=== PATIENT | male | born 1965 | race Caucasian/White ===

== ENCOUNTER 2017-02-21 16:07 | Inpatient (IN) | payer MEDICAID ==
[~2017-02-21] VITALS: Ht 172.7 cm; Wt 83.2 kg
[2017-02-21 21:12] VITALS: BP 115/66; RESP 18
[2017-02-21] MEDS ORDERED: PROCHLORPERAZINE 10 MG INJ IV PRN (22:00)
[2017-02-21] MEDS ORDERED: POLYETHYLENE GLYCOL 17 GM PACKET PO PRN (22:00)
[2017-02-21] MEDS ORDERED: MAGNESIUM HYDROXIDE 30ML CUP PO PRN (22:00)
[2017-02-21] MEDS ORDERED: ACETAMINOPHEN 325 MG TAB PO PRN (22:00)
[2017-02-21] MEDS ORDERED: DIPHENHYDRAMINE 25 MG CAP PO PRN (22:00)
[2017-02-21] MEDS ORDERED: ONDANSETRON 4 MG INJ IV PRN (22:00)
[2017-02-21] MEDS ORDERED: BISACODYL (EC) 5 MG TAB PO PRN (22:00)
[2017-02-21] MEDS ORDERED: ACYCLOVIR 400 MG TAB PO PRN (22:00)
[2017-02-21] MEDS: oxyCODONE 5 MG TAB PO PRN (22:11)
[2017-02-21 22:28] VITALS: Ht 172.7 cm; Wt 83.2 kg
[2017-02-21 23:17] LABS: ADD UMIC NO; URINE BILIRUBIN (Dip) NEGATIVE (NEGATIVE); URINE BLOOD (Dip) NEGATIVE (NEGATIVE); URINE COLOR LT. YELLOW (YELLOW); URINE GLUCOSE (Dip) NEGATIVE (NEGATIVE); URINE KETONES (Dip) NEGATIVE (NEGATIVE); URINE LEUKOCYTE ESTERASE (Dip) NEGATIVE (NEGATIVE); URINE NITRITE (Dip) NEGATIVE (NEGATIVE); URINE TOTAL PROTEIN (Dip) NEGATIVE (NEGATIVE); URINE UROBILINOGEN (Dip) 1.0 E.U./dL (0.1-1.0)
[2017-02-21] MEDS: ERTAPENEM SODIUM 1 GM in SOD CHLORIDE 0.9% 100 ML IVPB SCH (23:47)
[2017-02-22] MEDS: oxyCODONE 5 MG TAB PO PRN ×2 (06:50→20:59)
[2017-02-22 06:58] LABS: ADD SCAN DIFF NO
[2017-02-22 07:04] LABS: BASOPHILS % 0.5 % (0.0-2.0); EOSINOPHILS # 0.2 10^3/ul (0.0-0.5); EOSINOPHILS % 5.3 % (0.0-7.0); HEMATOCRIT 28.2 % (42.0-52.0); HEMOGLOBIN 8.9 g/dl (14.0-18.0); LYMPHOCYTES # 1.2 10^3/ul (0.8-2.9); LYMPHOCYTES % 29.5 % (15.0-51.0); MEAN CORPUSCULAR HEMOGLOBIN 31.7 pg (29.0-33.0); MEAN CORPUSCULAR HGB CONC 31.6 g/dl (32.0-37.0); MEAN CORPUSCULAR VOLUME 100.4 fl (82.0-101.0); MEAN PLATELET VOLUME 8.4 fl (7.4-10.4); MONOCYTE # 0.4 10^3/ul (0.3-0.9); MONOCYTES % 8.7 % (0.0-11.0); NEUTROPHIL # 2.3 10^3/ul (1.6-7.5); PLATELET COUNT 330 10^3/UL (140-415); RED BLOOD COUNT 2.81 10^6/ul (4.70-6.10); RED CELL DISTRIBUTION WIDTH 17.2 % (11.5-14.5); WHITE BLOOD COUNT 4.1 10^3/ul (4.8-10.8)
[2017-02-22 07:12] LABS: ALBUMIN 3.3 g/dl (3.3-4.9); ALBUMIN/GLOBULIN RATIO 0.82; BILIRUBIN,INDIRECT 0.8 mg/dl (0-1.1); BILIRUBIN,TOTAL 0.8 mg/dl (0.2-1.3); CALCIUM 8.4 mg/dl (8.4-10.2); CREATININE 0.5 mg/dl (0.61-1.24); POTASSIUM 4.5 mmol/L (3.5-5.1); TOTAL PROTEIN 7.3 g/dl (6.1-8.1)
[2017-02-22 07:34] VITALS: BP 127/71; RESP 18
[2017-02-22] MEDS: HYDROmorphONE 1 MG/ML SYG IV PRN ×6 (07:53→18:30)
[2017-02-22] MEDS: RIVAROXABAN 20 MG TABLET PO SCH (07:53)
[2017-02-22] MEDS: DOCUSATE SODIUM 100 MG CAP PO SCH ×2 (09:00→20:56)
[2017-02-22] MEDS: SENNA TAB PO SCH (09:00)
[2017-02-22] MEDS: BACITRACIN 0.5%/ZINC 28.35 GM OINT TOP SCH ×3 (09:52→20:52)
[2017-02-22] MEDS: [UNRECOGNIZED DRUG - MIXTURE] IV SCH (09:55)
[2017-02-22] MEDS: HEPARIN (100 UNITS/ML) 5 ML SYG IV SCH (10:10)
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
[2017-02-22 21:01] VITALS: BP 125/65; RESP 18
[2017-02-22] MEDS: ERTAPENEM SODIUM 1 GM in SOD CHLORIDE 0.9% 100 ML IVPB SCH (22:14)
[2017-02-23 07:20] LABS: ADD SCAN DIFF NO
[2017-02-23 07:25] LABS: BASOPHILS % 0.5 % (0.0-2.0); EOSINOPHILS # 0.2 10^3/ul (0.0-0.5); EOSINOPHILS % 4.5 % (0.0-7.0); HEMATOCRIT 29.8 % (42.0-52.0); HEMOGLOBIN 9.3 g/dl (14.0-18.0); LYMPHOCYTES # 1.1 10^3/ul (0.8-2.9); LYMPHOCYTES % 25.4 % (15.0-51.0); MEAN CORPUSCULAR HEMOGLOBIN 31.2 pg (29.0-33.0); MEAN CORPUSCULAR HGB CONC 31.2 g/dl (32.0-37.0); MEAN PLATELET VOLUME 8.4 fl (7.4-10.4); MONOCYTE # 0.4 10^3/ul (0.3-0.9); MONOCYTES % 7.9 % (0.0-11.0); NEUTROPHIL # 2.7 10^3/ul (1.6-7.5); NEUTROPHILS % 61.2 % (39.0-77.0); PLATELET COUNT 340 10^3/UL (140-415); RED BLOOD COUNT 2.98 10^6/ul (4.70-6.10); RED CELL DISTRIBUTION WIDTH 17.3 % (11.5-14.5); WHITE BLOOD COUNT 4.4 10^3/ul (4.8-10.8)
[2017-02-23 07:44] VITALS: BP 127/76; RESP 18
[2017-02-23 07:46] LABS: POTASSIUM 4.2 mmol/L (3.5-5.1)
[2017-02-23 07:49] LABS: CREATININE 0.47 mg/dl (0.61-1.24)
[2017-02-23 07:50] LABS: CALCIUM 8.8 mg/dl (8.4-10.2); MAGNESIUM 2.3 mg/dl (1.7-2.5); PHOSPHORUS 4.7 mg/dl (2.5-4.9)
[2017-02-23] MEDS: RIVAROXABAN 20 MG TABLET PO SCH (07:55)
[2017-02-23] MEDS: HYDROmorphONE 1 MG/ML SYG IV PRN (07:56)
[2017-02-23] MEDS: DOCUSATE SODIUM 100 MG CAP PO SCH ×2 (08:43→20:31)
[2017-02-23] MEDS: [UNRECOGNIZED DRUG - MIXTURE] IV SCH (08:43)
[2017-02-23] MEDS: BACITRACIN 0.5%/ZINC 28.35 GM OINT TOP SCH ×3 (08:43→20:31)
[2017-02-23] MEDS: SENNA TAB PO SCH (08:43)
[2017-02-23] MEDS: oxyCODONE 5 MG TAB PO PRN ×3 (09:57→22:33)
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
[2017-02-23] MEDS: HEPARIN (100 UNITS/ML) 5 ML SYG IV SCH (11:04)
[2017-02-23] MEDS: oxyCODONE 5 MG TAB PO SCH (12:28)
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
[2017-02-23] MEDS: ERTAPENEM SODIUM 1 GM in SOD CHLORIDE 0.9% 100 ML IVPB SCH (22:31)
[2017-02-24 08:00] VITALS: BP 115/88; PULSE 94
[2017-02-24] MEDS: RIVAROXABAN 20 MG TABLET PO SCH (08:05)
[2017-02-24] MEDS: oxyCODONE 5 MG TAB PO SCH ×2 (08:05→12:35)
[2017-02-24] MEDS: DOCUSATE SODIUM 100 MG CAP PO SCH ×2 (08:47→20:38)
[2017-02-24] MEDS: [UNRECOGNIZED DRUG - MIXTURE] IV SCH (08:47)
[2017-02-24] MEDS: SENNA TAB PO SCH (08:47)
[2017-02-24] MEDS: BACITRACIN 0.5%/ZINC 28.35 GM OINT TOP SCH ×3 (09:00→20:38)
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
[2017-02-24] MEDS: HYDROmorphONE 1 MG/ML SYG IV PRN ×3 (11:19→23:32)
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
--- NOTE | 2017-02-24 13:47 | RADRPT ---
PROCEDURE: Pelvis x-ray CLINICAL INDICATION: Pain TECHNIQUE: Single AP view of the pelvis performed. COMPARISON: None FINDINGS: A fracture of the mid left femoral shaft is noted status post placement of an intramedullary kathy. T here is medial displacement of the dominant fracture fragment. 2 cannulated screws are noted through the sacrum. Minimally displaced superior pubic rami fractures are noted bilaterally status post placement of a p late and screws. Screws are also noted in bilateral iliac bones which are bridged by a kathy. There are no significant degenerative changes. Unremarkable soft tissues. RPTAT: AA IMPRESSION: Fractures of the bilateral superior pubic rami and mid-left femoral shaft are noted status post ORIF . Cannulated screws are noted in the sacrum. Screws are noted in bilateral iliac bones bridged by a kathy. Physician Nyla Date Time Electronically viewed and signed by Physician Nyla on 02/24/2017 13:46 /
[2017-02-24] MEDS: oxyCODONE 5 MG TAB PO PRN (16:29)
[2017-02-24 20:00] VITALS: BP 108/70; RESP 18
[2017-02-24] MEDS: ERTAPENEM SODIUM 1 GM in SOD CHLORIDE 0.9% 100 ML IVPB SCH (22:41)
[2017-02-25] MEDS: HYDROmorphONE 1 MG/ML SYG IV PRN ×4 (07:55→18:47)
[2017-02-25 07:58] VITALS: BP 113/72; RESP 18
[2017-02-25] MEDS: RIVAROXABAN 20 MG TABLET PO SCH (08:25)
[2017-02-25] MEDS: DOCUSATE SODIUM 100 MG CAP PO SCH ×2 (09:00→20:26)
[2017-02-25] MEDS: SENNA TAB PO SCH (09:00)
[2017-02-25] MEDS: [UNRECOGNIZED DRUG - MIXTURE] IV SCH (09:00)
[2017-02-25] MEDS: oxyCODONE 5 MG TAB PO SCH ×2 (10:12→17:00)
[2017-02-25] MEDS: BACITRACIN 0.5%/ZINC 28.35 GM OINT TOP SCH ×3 (10:15→20:26)
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
[2017-02-25] MEDS ORDERED: HYDROmorphONE 1 MG/ML SYG IV PRN (12:00)
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
[2017-02-25 20:19] VITALS: BP 121/82; RESP 18
[2017-02-25] MEDS: oxyCODONE 5 MG TAB PO PRN (20:25)
[2017-02-25] MEDS: ERTAPENEM SODIUM 1 GM in SOD CHLORIDE 0.9% 100 ML IVPB SCH (22:39)
[2017-02-26] MEDS: DOCUSATE SODIUM 100 MG CAP PO SCH ×2 (08:10→20:21)
[2017-02-26] MEDS: SENNA TAB PO SCH (08:10)
[2017-02-26] MEDS: RIVAROXABAN 20 MG TABLET PO SCH (08:10)
[2017-02-26] MEDS: oxyCODONE 5 MG TAB PO SCH ×2 (08:11→13:06)
[2017-02-26] MEDS: HYDROmorphONE 1 MG/ML SYG IV PRN ×3 (08:11→20:21)
[2017-02-26] MEDS: [UNRECOGNIZED DRUG - MIXTURE] IV SCH (08:11)
[2017-02-26] MEDS: BACITRACIN 0.5%/ZINC 28.35 GM OINT TOP SCH ×3 (08:11→20:24)
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
[2017-02-26] MEDS: oxyCODONE 5 MG TAB PO PRN (18:21)
[2017-02-26 20:03] VITALS: BP 114/80; RESP 19
[2017-02-26] MEDS: ERTAPENEM SODIUM 1 GM in SOD CHLORIDE 0.9% 100 ML IVPB SCH (22:14)
[2017-02-27] MEDS: HYDROmorphONE 1 MG/ML SYG IV PRN ×3 (04:26→18:14)
[2017-02-27 08:00] VITALS: BP 117/72; PULSE 87
[2017-02-27] MEDS: RIVAROXABAN 20 MG TABLET PO SCH (08:58)
[2017-02-27] MEDS: oxyCODONE 5 MG TAB PO SCH ×2 (08:59→14:15)
[2017-02-27] MEDS: DOCUSATE SODIUM 100 MG CAP PO SCH ×2 (08:59→20:14)
[2017-02-27] MEDS: [UNRECOGNIZED DRUG - MIXTURE] IV SCH (08:59)
[2017-02-27] MEDS: SENNA TAB PO SCH (08:59)
[2017-02-27] MEDS: BACITRACIN 0.5%/ZINC 28.35 GM OINT TOP SCH ×3 (09:00→20:17)
[2017-02-27 10:07] LABS: ADD SCAN DIFF NO
[2017-02-27 10:11] LABS: BASOPHILS % 0.6 % (0.0-2.0); EOSINOPHILS # 0.2 10^3/ul (0.0-0.5); EOSINOPHILS % 5.6 % (0.0-7.0); HEMATOCRIT 28.4 % (42.0-52.0); LYMPHOCYTES # 0.8 10^3/ul (0.8-2.9); LYMPHOCYTES % 23.4 % (15.0-51.0); MEAN CORPUSCULAR HEMOGLOBIN 31.8 pg (29.0-33.0); MEAN CORPUSCULAR HGB CONC 31.7 g/dl (32.0-37.0); MEAN CORPUSCULAR VOLUME 100.4 fl (82.0-101.0); MEAN PLATELET VOLUME 8.5 fl (7.4-10.4); MONOCYTE # 0.2 10^3/ul (0.3-0.9); MONOCYTES % 6.8 % (0.0-11.0); NEUTROPHIL # 2.3 10^3/ul (1.6-7.5); NEUTROPHILS % 63.3 % (39.0-77.0); PLATELET COUNT 353 10^3/UL (140-415); RED BLOOD COUNT 2.83 10^6/ul (4.70-6.10); RED CELL DISTRIBUTION WIDTH 16.8 % (11.5-14.5); WHITE BLOOD COUNT 3.6 10^3/ul (4.8-10.8)
[2017-02-27 10:29] LABS: CREATININE 0.46 mg/dl (0.61-1.24); POTASSIUM 3.7 mmol/L (3.5-5.1)
[2017-02-27 10:30] LABS: CALCIUM 8.4 mg/dl (8.4-10.2); PHOSPHORUS 4.5 mg/dl (2.5-4.9)
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
[2017-02-27 19:16] VITALS: BP 112/71; RESP 20
[2017-02-27] MEDS: oxyCODONE 5 MG TAB PO PRN (20:17)
[2017-02-27] MEDS: ERTAPENEM SODIUM 1 GM in SOD CHLORIDE 0.9% 100 ML IVPB SCH (22:42)
[2017-02-28 07:30] VITALS: BP 118/75; RESP 18
[2017-02-28] MEDS: oxyCODONE 5 MG TAB PO SCH ×2 (07:51→12:41)
[2017-02-28] MEDS: RIVAROXABAN 20 MG TABLET PO SCH (07:52)
[2017-02-28] MEDS: SENNA TAB PO SCH ×2 (07:53→08:24)
[2017-02-28] MEDS: BACITRACIN 0.5%/ZINC 28.35 GM OINT TOP SCH ×3 (07:53→20:17)
[2017-02-28] MEDS: DOCUSATE SODIUM 100 MG CAP PO SCH ×3 (07:53→20:18)
[2017-02-28] MEDS: [UNRECOGNIZED DRUG - MIXTURE] IV SCH (09:21)
[2017-02-28] MEDS: HYDROmorphONE 1 MG/ML SYG IV PRN ×3 (09:22→23:05)
--- NOTE | 2017-02-28 09:37 | CONS ---
Date/Time of Note Date/Time of Note DATE: 02/28/17 TIME: 09:37 Consult Date/Type/Reason Admit Date/Time Feb 21, 2017 at 18:52 Objective Vital Signs Date Time Temp Pulse Resp B/P Pulse Ox O2 Delivery O2 Flow Rate FiO2 02/28/17 07:30 98.9 90 18 118/75 96 02/27/17 08:00 Room Air Intake and Output 02/27/17 02/27/17 02/28/17 15:00 23:00 07:00 Intake Total 300 ml 460 ml Output Total 250 ml 1500 ml Balance 50 ml -1040 ml INTERDISCIPLINARY TEAM CONFERENCE BOWEL- Cont BLADDER-Cont SKIN- intact OT- DRESSING-sba/min BATHING-sba/min TOILETING-min PT- BED MOBILITY-sba TRANSFERS-cga AMBULATION-cga 120 feet A/P- Interdisciplinary team conference held today. Please see interdisciplinary sheet. Working toward d.c. on 03/06 with post discharge follow up of physical therapy, occupational therapy. Results/Medications Result Diagram: 02/27/17 0940 02/27/17 0940 Results 24 hrs Laboratory Tests Test 02/27/17 09:40 White Blood Count 3.6 L Red Blood Count 2.83 L Hemoglobin 9.0 L Hematocrit 28.4 L Mean Corpuscular Volume 100.4 Mean Corpuscular Hemoglobin 31.8 Mean Corpuscular Hemoglobin Concent 31.7 L Red Cell Distribution Width 16.8 H Platelet Count 353 Mean Platelet Volume 8.5 Neutrophils % 63.3 Lymphocytes % 23.4 Monocytes % 6.8 Eosinophils % 5.6 Basophils % 0.6 Nucleated Red Blood Cells % 0.0 Neutrophils # 2.3 Lymphocytes # 0.8 Monocytes # 0.2 L Eosinophils # 0.2 Basophils # 0.0 Nucleated Red Blood Cells # 0.0 Sodium Level 135 Potassium Level 3.7 Chloride Level 101 Carbon Dioxide Level 26 Anion Gap 12 Blood Urea Nitrogen 9 Creatinine 0.46 L Glucose Level 125 Calcium Level 8.4 Phosphorus Level 4.5 Magnesium Level 2.0 Medications Current Medications Docusate Sodium (Colace) 200 mg BID PO Last administered on 02/27/17 20:14; Admin Dose 200 MG; Start 02/22/17 at 09:00 Senna (Senokot) 2 tab DAILY PO Last administered on 02/26/17 08:10; Admin Dose 2 TAB; Start 02/22/17 at 09:00 Polyethylene Glycol (Miralax) 17 gm BID PRN PO CONSTIPATION; Start 02/21/17 at 22:00 IV Flush (NS 10 ml) 10 ml DAILY IV Last administered on 02/28/17 09:21; Admin Dose 10 ML; Start 02/22/17 at 09:00 Magnesium Hydroxide (Milk Of Mag) 30 ml DAILY PRN PO CONSTIPATION; Start at 22:00 Acetaminophen (Tylenol Tab) 650 mg QID PRN PO PAIN/FEVER; Start 02/21/17 at 22: 00 Bacitracin (Bacitracin 0.5%/ Zinc Oint) 1 applic TID TOP Last administered on 07:53; Admin Dose 1 APPLIC; Start 02/22/17 at 09:00 Acyclovir (Zovirax) 400 mg TID PRN PO DIRECTED; Start 02/21/17 at 22:00 Oxycodone HCl (Roxicodone) 10 mg Q4H PRN PO PAIN Last administered on 20:17; Admin Dose 10 MG; Start 02/21/17 at 22:00 Ondansetron HCl (Zofran Inj) 4 mg Q4H PRN IV NAUSEA AND/OR VOMITING; Start at 22:00 Prochlorperazine (Compazine Inj) 10 mg Q6H PRN IV NAUSEA AND/OR VOMITING; Start 02/21/17 at 22:00 Bisacodyl (Dulcolax) 10 mg DAILY PRN PO CONSTIPATION; Start 02/21/17 at 22:00 Diphenhydramine HCl 25 mg 25 mg Q6H PRN PO ITCHNESS; Start 02/21/17 at 22:00 Ertapenem/Sodium Chloride (Invanz/NS) 100 ml @ 200 mls/hr Q24H IVPB Last administered on 02/27/17 22:42; Admin Dose 200 MLS/HR; Start 02/21/17 at 23:00 Oxycodone HCl (Roxicodone) 10 mg BID@08,13 PO Last administered on 02/28/17 07 :51; Admin Dose 10 MG; Start 02/23/17 at 13:00 Hydromorphone HCl (Dilaudid) 1 mg Q6H PRN IV PAIN Last administered on 09:22; Admin Dose 1 MG; Start 02/25/17 at 12:00 HORACE KOO MD Feb 28, 2017 09:37 HORACE KOO MD Feb 28, 2017 09:37
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
[2017-02-28 20:09] VITALS: BP 108/63; RESP 18
[2017-02-28] MEDS: oxyCODONE 5 MG TAB PO PRN (20:18)
[2017-02-28] MEDS: ERTAPENEM SODIUM 1 GM in SOD CHLORIDE 0.9% 100 ML IVPB SCH (23:04)
[2017-03-01] MEDS: [UNRECOGNIZED DRUG - MIXTURE] IV SCH (07:28)
[2017-03-01] MEDS: RIVAROXABAN 20 MG TABLET PO SCH (07:28)
[2017-03-01] MEDS: HYDROmorphONE 1 MG/ML SYG IV PRN ×3 (07:33→18:33)
[2017-03-01 08:00] VITALS: BP 158/81
[2017-03-01] MEDS: oxyCODONE 5 MG TAB PO SCH ×2 (08:20→13:44)
[2017-03-01] MEDS: SENNA TAB PO SCH (09:00)
[2017-03-01] MEDS: DOCUSATE SODIUM 100 MG CAP PO SCH ×2 (09:00→20:49)
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
[2017-03-01] MEDS: BACITRACIN 0.5%/ZINC 28.35 GM OINT TOP SCH ×3 (13:00→20:48)
[2017-03-01] MEDS: oxyCODONE 5 MG TAB PO PRN ×2 (16:04→20:44)
[2017-03-01 20:00] VITALS: BP 110/64; RESP 18
[2017-03-01] MEDS ORDERED: PREGABALIN 75 MG CAP PO SCH ×2 (21:00)
[2017-03-01] MEDS: ERTAPENEM SODIUM 1 GM in SOD CHLORIDE 0.9% 100 ML IVPB SCH (23:23)
[2017-03-02] MEDS: HYDROmorphONE 1 MG/ML SYG IV PRN ×4 (00:07→20:59)
[2017-03-02] MEDS: RIVAROXABAN 20 MG TABLET PO SCH (07:22)
[2017-03-02] MEDS: [UNRECOGNIZED DRUG - MIXTURE] IV SCH (07:23)
[2017-03-02 08:00] VITALS: BP 112/75
[2017-03-02] MEDS: oxyCODONE 5 MG TAB PO SCH ×2 (08:45→14:22)
[2017-03-02] MEDS: SENNA TAB PO SCH (09:00)
[2017-03-02] MEDS: BACITRACIN 0.5%/ZINC 28.35 GM OINT TOP SCH ×3 (09:00→20:58)
[2017-03-02] MEDS: DOCUSATE SODIUM 100 MG CAP PO SCH ×2 (09:00→20:57)
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
[2017-03-02] MEDS: oxyCODONE 5 MG TAB PO PRN (18:14)
[2017-03-02 20:00] VITALS: BP 118/69; RESP 18
[2017-03-02] MEDS: PREGABALIN 75 MG CAP PO SCH (20:57)
[2017-03-02] MEDS: ERTAPENEM SODIUM 1 GM in SOD CHLORIDE 0.9% 100 ML IVPB SCH (22:29)
[2017-03-03 07:30] VITALS: BP 114/69; RESP 18
[2017-03-03] MEDS: RIVAROXABAN 20 MG TABLET PO SCH (07:53)
[2017-03-03] MEDS: oxyCODONE 5 MG TAB PO SCH ×2 (07:53→14:08)
[2017-03-03] MEDS: BACITRACIN 0.5%/ZINC 28.35 GM OINT TOP SCH ×3 (09:00→20:36)
[2017-03-03] MEDS: SENNA TAB PO SCH (09:00)
[2017-03-03] MEDS: [UNRECOGNIZED DRUG - MIXTURE] IV SCH (09:10)
[2017-03-03] MEDS: PREGABALIN 75 MG CAP PO SCH ×2 (09:10→20:35)
[2017-03-03] MEDS: DOCUSATE SODIUM 100 MG CAP PO SCH ×2 (09:10→20:35)
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
[2017-03-03] MEDS: HYDROmorphONE 1 MG/ML SYG IV PRN ×2 (15:56→21:59)
[2017-03-03 19:53] VITALS: BP 122/70; RESP 18
[2017-03-03] MEDS: oxyCODONE 5 MG TAB PO PRN (20:40)
[2017-03-03] MEDS: ERTAPENEM SODIUM 1 GM in SOD CHLORIDE 0.9% 100 ML IVPB SCH (22:54)
[2017-03-04] MEDS: HYDROmorphONE 1 MG/ML SYG IV PRN ×3 (07:18→22:10)
[2017-03-04 07:30] VITALS: BP 124/73; RESP 18
[2017-03-04] MEDS: DOCUSATE SODIUM 100 MG CAP PO SCH ×2 (08:41→20:36)
[2017-03-04] MEDS: SENNA TAB PO SCH (08:41)
[2017-03-04] MEDS: PREGABALIN 75 MG CAP PO SCH (08:41)
[2017-03-04] MEDS: oxyCODONE 5 MG TAB PO SCH ×2 (08:41→12:35)
[2017-03-04] MEDS: RIVAROXABAN 20 MG TABLET PO SCH (08:41)
[2017-03-04] MEDS: BACITRACIN 0.5%/ZINC 28.35 GM OINT TOP SCH ×3 (09:00→20:36)
[2017-03-04] MEDS: [UNRECOGNIZED DRUG - MIXTURE] IV SCH (09:00)
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
[2017-03-04] MEDS: oxyCODONE 5 MG TAB PO PRN (19:04)
[2017-03-04 20:07] VITALS: BP 106/56; RESP 18
[2017-03-04] MEDS: GABAPENTIN 300 MG CAP PO SCH (20:37)
[2017-03-05] MEDS: HYDROmorphONE 1 MG/ML SYG IV PRN (07:24)
[2017-03-05] MEDS: RIVAROXABAN 20 MG TABLET PO SCH (07:25)
[2017-03-05 08:00] VITALS: BP 123/73
[2017-03-05] MEDS: GABAPENTIN 300 MG CAP PO SCH (08:58)
[2017-03-05] MEDS: [UNRECOGNIZED DRUG - MIXTURE] IV SCH (08:59)
[2017-03-05] MEDS: oxyCODONE 5 MG TAB PO SCH (08:59)
[2017-03-05] MEDS: DOCUSATE SODIUM 100 MG CAP PO SCH (09:00)
[2017-03-05] MEDS: SENNA TAB PO SCH (09:00)
[2017-03-05] MEDS: BACITRACIN 0.5%/ZINC 28.35 GM OINT TOP SCH (09:00)
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
== END 2017-03-05 12:45 | disposition home health service (06) | DRG 560 ==
LOC: VRC 18:52
PROVIDERS: ADMIT Physical Medicine & Rehabilitation; ATTEND Internal Medicine Nephrology
DX: S32.491D Other specified fracture of right acetabulum, subsequent encounter for fracture with routine healing (principal); I82.403 Acute embolism and thrombosis of unspecified deep veins of lower extremity, bilateral; E87.1 Hypo-osmolality and hyponatremia; N39.0 Urinary tract infection, site not specified; G62.9 Polyneuropathy, unspecified; S72.8X2D Other fracture of left femur, subsequent encounter for closed fracture with routine healing; S22.49XD Multiple fractures of ribs, unspecified side, subsequent encounter for fracture with routine healing; S32.591D Other specified fracture of right pubis, subsequent encounter for fracture with routine healing; S32.10XD Unspecified fracture of sacrum, subsequent encounter for fracture with routine healing; S42.001D Fracture of unspecified part of right clavicle, subsequent encounter for fracture with routine healing; V03.90XD Pedestrian on foot injured in collision with car, pick-up truck or van, unspecified whether traffic or nontraffic accident, subsequent encounter; D64.9 Anemia, unspecified; B00.1 Herpesviral vesicular dermatitis; Z79.02 Long term (current) use of antithrombotics/antiplatelets; D72.819 Decreased white blood cell count, unspecified; R74.8 Abnormal levels of other serum enzymes; S36.113D Laceration of liver, unspecified degree, subsequent encounter; S37.031D Laceration of right kidney, unspecified degree, subsequent encounter; B96.89 Other specified bacterial agents as the cause of diseases classified elsewhere; Z16.12 Extended spectrum beta lactamase (ESBL) resistance
CPT/HCPCS: 72170; 80048; 80053; 81003; 83735; 84100; 85025; 87081; 87086; 92523; 92610; 97110; 97112; 97116; 97150; 97163; 97167; 97530; 97535; 97542; J1170; J1335; J1642